=== PATIENT | male | born 1985 | race Caucasian/White ===

== ENCOUNTER 2018-02-03 00:20 | Emergency (ER) | payer MEDICAID ==
[~2018-02-03] VITALS: Ht 177.8 cm; Wt 100.0 kg
[~2018-02-03 00:20] MED LIST: ACET-2247 PO; DULO20CA30 PO; FOLI1 PO; LIB25 PO; MULT-1239 PO; OLAN2.5T3 PO; QUET200T PO; THIA100T67 PO
[2018-02-03 02:56] LABS: ANION GAP 10 mmol/L (8-16); CALCIUM, TOTAL 8.2 mg/dL (8.8-10.5); CARBON DIOXIDE 30 mmol/L (22-29); CHLORIDE 105 mmol/L (98-107); CREATININE 0.95 mg/dL (0.60-1.30); GLOMERULAR FILTR. RATE CALC > 60 mL/min (>60); GLUCOSE,RANDOM 163 mg/dL (70-110); POTASSIUM 4.2 mmol/L (3.5-5.1); SODIUM SERUM 145 mmol/L (136-145); UREA NITROGEN, BLOOD 10 mg/dL (7-18)
[2018-02-03 03:02] LABS: ALANINE AMINOTRANSFERASE 316 U/L (12-78); ALBUMIN 3.6 g/dL (3.4-5.0); ALKALINE PHOSPHATASE 79 U/L (46-116); ASPARTATE AMINOTRANSFERASE 116 U/L (15-37); BILIRUBIN,TOTAL 0.2 mg/dL (0.1-1.0); LIPASE 291 U/L (73-393); TOTAL PROTEIN, SERUM 6.8 g/dL (6.4-8.2)
[2018-02-03 03:13] LABS: BASOPHILS % (AUTO) 0.5 % (0.0-2.0); EOSINOPHILS % (AUTO) 2.7 % (1.0-6.0); HEMATOCRIT 48.2 % (41-53); HEMOGLOBIN 16.7 g/dL (13.5-17.5); LYMPHOCYTES # (AUTO) 2.7 K/uL (1.0-4.8); LYMPHOCYTES % (AUTO) 27.8 % (22.0-44.0); MEAN CORPUSCULAR HEMOGLOBIN 31.5 pg (26.0-34.0); MEAN CORPUSCULAR HGB CONC 34.6 G/dL (31.0-37.0); MEAN CORPUSCULAR VOLUME 91 fL (80-100); MONOCYTES # (AUTO) 0.6 K/uL (0.1-1.0); MONOCYTES % (AUTO) 5.6 % (2.0-9.0); NEUTROPHILS # (AUTO) 6.3 K/uL (1.8-7.7); NEUTROPHILS % (AUTO) 63.4 % (40.0-70.0); PLATELET COUNT (AUTO) 351 K/uL (150-450); RED BLOOD CELL COUNT(AUTO) 5.29 MIL/uL (4.50-5.90); RED CELL DISTRIBUTION WIDTH 13.7 % (11.5-14.5)
[2018-02-03 05:17] VITALS: BP 109/55
== END 2018-02-03 05:47 | disposition home or self-care (01) ==
LOC: EMS 00:20
DX: F10.129 Alcohol abuse with intoxication, unspecified (principal); F31.9 Bipolar disorder, unspecified; F20.9 Schizophrenia, unspecified; F19.90 Other psychoactive substance use, unspecified, uncomplicated; F17.210 Nicotine dependence, cigarettes, uncomplicated; Y90.1 Blood alcohol level of 20-39 mg/100 ml
CPT/HCPCS: 36415; 70450; 80053; 82962; 83690; 85025; 99284; G0480

== ENCOUNTER 2024-11-05 19:11 | Inpatient (IN) | payer MEDICAID, OTHER ==
[~2024-11-05] VITALS: Ht 175.3 cm; Wt 81.8 kg
[~2024-11-05 19:11] MED LIST changes: +CHLO25CA6 PO; +DULO20CA23 PO; -DULO20CA30 PO; +FOLI-130 PO; -FOLI1 PO; -LIB25 PO; -THIA100T67 PO; +THIAMINE HCL100 MG PO
[2024-11-05 20:02] LABS: PLATELET COUNT (AUTO) 292 K/uL (150-450); RED BLOOD CELL COUNT(AUTO) 5.14 MIL/uL (4.50-5.90); RED CELL DISTRIBUTION WIDTH 13.8 % (11.5-14.5); WHITE BLOOD COUNT (AUTO) 11.1 K/uL (4.5-11.0)
[2024-11-05 20:08] LABS: CALCIUM, TOTAL 8.2 mg/dL (8.8-10.5); CREATININE 1.06 mg/dL (0.60-1.30); GLOMERULAR FILTR. RATE CALC > 60 mL/min (>60); GLUCOSE,RANDOM 126 mg/dL (70-110); SODIUM SERUM 134 mmol/L (136-145); UREA NITROGEN, BLOOD 15 mg/dL (7-18)
[2024-11-05 20:12] LABS: ASPARTATE AMINOTRANSFERASE 55.0 U/L (15-37); TOTAL PROTEIN, SERUM 6.5 g/dL (6.4-8.2)
[2024-11-05] MEDS ORDERED: IOHEXOL 350 MG/ML 100 ML VIAL ONE (20:14)
[2024-11-05] MEDS ORDERED: SODIUM CHLORIDE 0.9% 100 ML ONE (20:14)
[2024-11-05] MEDS: ONDANSETRON HCL 4 MG/2 ML VIAL IVP ONE (20:26)
[2024-11-05] MEDS: MORPHINE SULFATE 2 MG/ML SYRINGE IVP ONE (20:26)
[2024-11-05] MEDS: FAMOTIDINE 20 MG/2 ML VIAL IVP ONE (20:26)
[2024-11-05] MEDS: SODIUM CHLORIDE 0.9% 1,000 ML IV ONE ×2 (20:27→21:40)
[2024-11-06 05:27] LABS: APPEARANCE,URINE CLEAR (CLEAR); GLUCOSE, URINE (UA) NEGATIVE (NEGATIVE); LEUKOCYTE ESTERASE ,URINE NEGATIVE (NEGATIVE); NITRATE,URINE NEGATIVE (NEGATIVE); OCCULT BLOOD,URINE NEGATIVE (NEGATIVE); SPECIFIC GRAVITIY, URINE 1.048 (1.003-1.030)
[2024-11-06 07:14] LABS: PLATELET COUNT (AUTO) 299 K/uL (150-450); RED BLOOD CELL COUNT(AUTO) 5.13 MIL/uL (4.50-5.90); RED CELL DISTRIBUTION WIDTH 14.3 % (11.5-14.5); WHITE BLOOD COUNT (AUTO) 10.3 K/uL (4.5-11.0)
[2024-11-06] MEDS: SODIUM CHLORIDE 0.9% 1,000 ML IV ONE ×2 (07:16→07:42)
[2024-11-06 07:25] LABS: CALCIUM, TOTAL 8.1 mg/dL (8.8-10.5); CREATININE 0.87 mg/dL (0.60-1.30); GLOMERULAR FILTR. RATE CALC > 60 mL/min (>60); GLUCOSE,RANDOM 109 mg/dL (70-110); SODIUM SERUM 135 mmol/L (136-145); UREA NITROGEN, BLOOD 10 mg/dL (7-18)
[2024-11-06] MEDS: MIDAZOLAM HCL 5 MG/ML VIAL IVP ONE (07:40)
[2024-11-06] MEDS: ONDANSETRON HCL 4 MG/2 ML VIAL IVP ONE (07:41)
[2024-11-06] MEDS: BENZOCAINE 20% 50 MCG/SPRAY 57 GM TP ONE (07:41)
[2024-11-06 19:18] VITALS: BP 139/79; PULSE 60; RESP 18; TEMP 98.4; O2SAT 100
[2024-11-06 21:11] LABS: PH,URINE DRUG SCREEN 5.5 (5.0-8.0)
[2024-11-06 21:16] LABS: ALCOHOL, URINE DRUG SCREEN NEGATIVE (NEGATIVE); AMPHET/METH SCREEN,URINE NEGATIVE (NEGATIVE); BARBITURATE SCREEN, URINE NEGATIVE (NEGATIVE); CANNABINOID SCREEN,URINE NEGATIVE (NEGATIVE); COCAINE SCREEN,URINE NEGATIVE (NEGATIVE); METHADONE SCREEN, URINE NEGATIVE (NEGATIVE)
[2024-11-06 22:07] VITALS: BP 139/82; PULSE 65; RESP 18; TEMP 98.2; O2SAT 99
[2024-11-06] MEDS: MORPHINE SULFATE 2 MG/ML SYRINGE IVP PRN (22:07)
[2024-11-07 04:25] VITALS: BP 145/80; PULSE 60; RESP 18; TEMP 98; O2SAT 100
[2024-11-07 09:00] VITALS: BP 134/80; PULSE 61; RESP 19; TEMP 98.4; O2SAT 98
[2024-11-07] MEDS ORDERED: BISACODYL 10 MG RECTAL RECTAL SUPPOSITORY PR PRN (10:30)
[2024-11-07] MEDS ORDERED: ALBUTEROL SULFATE 2.5 MG/0.5 ML NEB SOLUTION NEB PRN (10:30)
[2024-11-07] MEDS ORDERED: ZOLPIDEM TARTRATE 5 MG TABLET PO PRN (10:30)
[2024-11-07] MEDS ORDERED: MAGNESIUM HYDROXIDE SUSPENSION 30 ML UDCUP PO PRN (10:30)
[2024-11-07] MEDS ORDERED: IPRATROPIUM BROMIDE 0.5 MG/2.5 ML NEB SOLUTION NEB PRN (10:30)
[2024-11-07] MEDS ORDERED: ACETAMINOPHEN 325 MG TABLET PO PRN (10:30)
[2024-11-07] MEDS ORDERED: ONDANSETRON HCL 4 MG/2 ML VIAL IVP PRN (10:30)
[2024-11-07] MEDS ORDERED: HYDROCODONE/ACETAMINOPHEN 5-325 MG TABLET PO PRN (10:30)
[2024-11-07] MEDS ORDERED: MORPHINE SULFATE 2 MG/ML SYRINGE IVP PRN (10:30)
[2024-11-07] MEDS: FOLIC ACID 1 MG TABLET PO SCH (10:39)
[2024-11-07] MEDS: THIAMINE 100 MG TABLET PO SCH (10:39)
[2024-11-07] MEDS: MULTIVITAMINS WITH MINERALS, THERAPEUTIC TABLET PO SCH (10:39)
[2024-11-07] MEDS ORDERED: HEPARIN SODIUM,PORCINE 5,000 UNITS/ML VIAL SQ SCH (16:00)
[2024-11-07] MEDS ORDERED: DULoxetine HCL 20 MG CAPSULE PO SCH (21:00)
[2024-11-08] MEDS ORDERED: PANTOPRAZOLE SODIUM 40 MG DR TABLET PO SCH (09:00)
== END 2024-11-07 14:03 | DRG 388 ==
LOC: EMS 19:11 → EDH 11-06 00:03 → 6S 11-06 08:59
PROVIDERS: ADMIT Hospitalist; ATTEND Hospitalist
DX: K56.7 Ileus, unspecified (principal); K85.90 Acute pancreatitis without necrosis or infection, unspecified; F20.9 Schizophrenia, unspecified; F10.10 Alcohol abuse, uncomplicated; Y90.8 Blood alcohol level of 240 mg/100 ml or more; F31.9 Bipolar disorder, unspecified; Z72.0 Tobacco use; Z79.899 Other long term (current) drug therapy; Z85.028 Personal history of other malignant neoplasm of stomach; Z90.3 Acquired absence of stomach [part of]; Z90.49 Acquired absence of other specified parts of digestive tract
CPT/HCPCS: 71045; 74177; 80048; 80076; 80307; 81003; 82550; 83690; 85025; 93005; 96361; 96374; 96375; 99285; J1171; J2250; J2270; J2405; J3490; J7030; J7050; 36415-L1; 36415-TC